=== PATIENT | male | born 1995 | race Caucasian/White ===

== ENCOUNTER 2016-11-14 21:19 | Emergency (ER) | payer OTHER ==
[~2016-11-14] VITALS: Ht 180.3 cm; Wt 68.0 kg
--- NOTE | ~2016-11-14 | CR230 ---
[facility] A Service of [facility] RADIOLOGY TEXT RESULTS PATIENT: TASHA MILLER LOCATION: [facility] : 95 UNIT #: [id number] AGE: [address]: Radha Leija MD SEX: M ORDER DR: [id number] [facility] [address] [place], [place] [address] [id number] E MR#: [id number] Acc #: [id number] NAME: TASHA MILLER : 1995 SEX: M STUDY DATE/TIME: 11/14/20162308 UNIT: [facility] ROOM: STUDY DESCRIPTION: CR Shoulder Min 2 View Rt Attending Physician: Radha Leija M.D. Ordering Physician: Radha Leija M.D. Primary Care Physician: Gabriella Gilmore M.D. MEDICAL IMAGING REPORT This report is preliminary unless electronic signature is present EXAM Right shoulder, 2308. INDICATION Shoulder pain for 2 days after a fall down steps. FINDINGS Three views of the right shoulder were obtained. There is no fracture or dislocation. There is no AC joint separation. IMPRESSION Negative right shoulder. Dictated by... Micah Stlaey Jr., M.D. THIS IS AN ELECTRONICALLY VERIFIED REPORT Micah Staley Jr., M.D. at 11/18/2016 5:50 AM ALBA/ramón TD: 11/15/2016 10:27 JOB #: [id number] MEDICAL IMAGING REPORT Page 1 of 1 COPY
--- NOTE | ~2016-11-14 | CR181 ---
[facility] A Service of [facility] & [facility] RADIOLOGY TEXT RESULTS PATIENT: TASHA MILLER LOCATION: [facility] : 95 UNIT #: [id number] AGE: [address]: Radha Leija MD SEX: M ORDER DR: [id number] [facility] [address] [place], [place] [address] [id number] E MR#: [id number] Acc #: [id number] NAME: TASHA MILLER : 1995 SEX: M STUDY DATE/TIME: 11/14/2016 23:12 UNIT: [facility] ROOM: STUDY DESCRIPTION: CR Lumbar Spine 2 or 3 Views Attending Physician: Radha Leija M.D. Ordering Physician: Radha Leija M.D. Primary Care Physician: Gabriella Gilmore M.D. MEDICAL IMAGING REPORT This report is preliminary unless electronic signature is present EXAM Lumbar spine 11/14 23:12 INDICATION Low back pain after fall down the steps yesterday. FINDINGS Three views of the lumbar spine were obtained. Comparison made with reformatted CT images from 10/15/2011. There is grade 1 spondylolisthesis at L5-S1. No fractures are seen. Disc spaces are well maintained. Prior CT demonstrated bilateral L5 pars defects. IMPRESSION Stable L5-S1 spondylolisthesis due to bilateral L5 pars defects. The rest of the lumbar spine is normal. Dictated by... Micah Staley Jr., M.D. THIS IS AN ELECTRONICALLY VERIFIED REPORT Micah Staley Jr., M.D. at 11/18/2016 5:50 AM ALBA/venus TD: 11/15/2016 10:29 JOB #: [id number] MEDICAL IMAGING REPORT Page 1 of 1 COPY
--- NOTE | ~2016-11-14 | CR151 ---
[facility] A Service of [facility] & [facility] RADIOLOGY TEXT RESULTS PATIENT: TASHA MILLER LOCATION: [facility] : 95 UNIT #: [id number] AGE: [address]: Radha Leija MD SEX: M ORDER DR: [id number] [facility] [address] [place], [place] [address] [id number] E MR#: [id number] Acc #: [id number] NAME: TASHA MILLER : 1995 SEX: M STUDY DATE/TIME: 11/14/2016 23:11 UNIT: [facility] ROOM: STUDY DESCRIPTION: CR Hip Min 2 Views Rt Attending Physician: Radha Leija M.D. Ordering Physician: Radha Leija M.D. Primary Care Physician: Gabriella Gilmore M.D. MEDICAL IMAGING REPORT This report is preliminary unless electronic signature is present EXAM Right hip 11/14 2311 INDICATIONS Hip pain after fall down stairs yesterday. FINDINGS AP pelvis was obtained in addition to a frog-leg right hip. There is no fracture or dislocation. Femoral heads are normal. No sacroiliac joint diastases. IMPRESSION Normal pelvis and right hip. Dictated by... Micah Staley Jr., M.D. THIS IS AN ELECTRONICALLY VERIFIED REPORT Micah Staley Jr., M.D. at 11/18/2016 5:50 AM ALBA/brittany TD: 11/15/2016 10:26 JOB #: [id number] MEDICAL IMAGING REPORT Page 1 of 1 COPY
[~2016-11-14 21:19] MED LIST: ADVIL200 M1 DOB; ALB/IPRATROPIUM/1 E1 INH; ALBUTEROL17 G2 IH; AMOXIL400 MG/51 PO; BACTRIM DS TABL1 TA1 PO; BENADRYL25 M1 PO; CLONIDINE1 EAC1 TD; FLEXERIL PO; IBUPROFEN PO; IBUPROFEN400 MG PO; IBUPROFEN800 MG PO; KEFLEX250 M2 PO; KEFLEX500 MG PO; KETOPROFEN PO; LORATADINE; MEDROL4 MG PO; MOTRIN400 MG PO; MOTRIN600 MG PO; MUCINEX PO; NASONEX17 GM; ORAPRED ODT15 MG/TAB PO; PHENERGAN VC W120 M1 PO; PHENERGAN W/CO120 ML PO; TYLENOL #3 PO; ZITHROMAX500 MG PO; ZOFRAN PO; ZYRTEC PO
== END 2016-11-15 01:54 | disposition home or self-care (01) ==
LOC: CED 21:19
DX: S40.011A Contusion of right shoulder, initial encounter (principal); S70.01XA Contusion of right hip, initial encounter; S30.0XXA Contusion of lower back and pelvis, initial encounter; F17.200 Nicotine dependence, unspecified, uncomplicated; Z88.5 Allergy status to narcotic agent; Z88.8 Allergy status to other drugs, medicaments and biological substances; W10.9XXA Fall (on) (from) unspecified stairs and steps, initial encounter; Y92.009 Unspecified place in unspecified non-institutional (private) residence as the place of occurrence of the external cause
CPT/HCPCS: 72100; 73030; 73502; 99283